=== PATIENT | male | born 1945 | race Caucasian/White ===

== ENCOUNTER 2016-06-08 14:54 | Emergency (ER) | payer MEDICAID, MEDICARE, OTHER ==
[~2016-06-08] VITALS: Ht 182.9 cm; Wt 115.7 kg
[~2016-06-08 14:54] MED LIST: DESV50TA PO
[2016-06-08 14:59] VITALS: BP 129/63
== END 2016-06-08 15:27 | disposition home or self-care (01) ==
LOC: ER 14:58
DX: H60.501 Unspecified acute noninfective otitis externa, right ear (principal); F32.9 Major depressive disorder, single episode, unspecified
CPT/HCPCS: A4606; Z7610